=== PATIENT | male | born 1960 | race Caucasian/White ===

== ENCOUNTER 2025-01-06 10:05 | Outpatient (CLI) | payer BC, SELFPAY ==
[2025-01-06 13:45] LABS: Albumin* 4.2 g/dL (3.3-5.0); Chloride* 103 mmol/L (96-114); Potassium* 4.0 mmol/L (3.6-5.1); Sodium* 141 mmol/L (135-149)
[2025-01-06 13:47] LABS: Hematocrit* 45.8 % (37.0-53.0); Hemoglobin* 14.6 gm/dL (13.5-17.5); Immature Granulocytes Abs Auto 0.04 K/uL (0.00-0.30); Immature Granulocytes Pct Auto 0.6 %; Lymphocytes Absolute Auto 1.52 K/uL (0.90-2.90); Mean Corpuscular HGB Conc 32 gm/dL (32-36); Mean Corpuscular Hemoglobin 30 pg (26-34); Mean Corpuscular Volume 94 fL (80-100); RDW Coefficient of Variation % 12.4 % (11.5-15.5); Red Blood Count* 4.87 m/uL (4.30-5.90); White Blood Count* 6.71 K/uL (4.50-11.00)
[2025-01-06 13:48] LABS: Alanine Aminotransferase* 34 U/L (4-50); Alkaline Phosphatase* 85 U/L (40-150); Anion Gap 9 mEq/L (7-15); Aspartate Amino Transferase* 31 U/L (12-35); Bilirubin Total* 0.6 mg/dL (0.1-1.5); Blood Urea Nitrogen* 15 mg/dL (7-30); Calcium* 9.0 mg/dL (8.4-10.6); Carbon Dioxide* 29 mmol/L (20-32); Creatinine* 0.9 mg/dL (0.5-1.5); Estimated Glomerular Filt Rate 97 ml/min; Glucose* 220 mg/dL (60-115); Total Protein* 6.9 g/dL (6.0-8.3)
[2025-01-06 13:55] LABS: Slide Review Reflex No
[2025-01-06 14:15] LABS: Hepatitis B Surface Antigen* Negative (Negative)
[2025-01-06 14:32] LABS: Hepatitis C Virus Antibody* Negative (Negative)
[2025-01-06 14:38] LABS: Hepatitis B Surface Antibody* Negative (Negative)
[2025-01-07 17:38] LABS: Hepatitis B Core Antibodies Negative (Negative)
== END 2025-01-06 10:06 | disposition home or self-care (01) ==
LOC: NPINS 10:06
PROVIDERS: Visit Provider Physician Assistant
DX: Z79.899 Other long term (current) drug therapy (principal)
CPT/HCPCS: 80053; 85025; 86480; 86704; 86706; 86803; 87340